=== PATIENT | female | born 1980 | race Caucasian/White ===

== ENCOUNTER 2021-08-27 09:32 | Outpatient (CLI) | payer OTHER, SELFPAY ==
--- NOTE | 2021-08-27 11:15 | NEURO_ITS ---
Impression: # Complains of nocturnal paresthesia/numbness of hands. # Severe right Carpal Tunnel Syndrome. # Moderate left Carpal Tunnel Syndrome. # Bilateral ulnar neuropathy across the elbows. # Needle/EMG exam not requested. Nerve Conduction Studies Anti Sensory Summary Table Stim Site NR Peak (ms) P-T Amp (?V) Site1 Site2 Delta-P (ms) Dist (cm) Rene (m/s) Left Median Anti Sensory (2-3nd Digit) Wrist 5.0 27.0 Wrist 2-3nd Digit 5.0 14.0 28 Wrist 4.7 14.7 Wrist 2-3nd Digit 5.0 14.0 28 Right Median Anti Sensory (2-3nd Digit) Wrist 8.9 12.7 Wrist 2-3nd Digit 8.9 14.0 16 Wrist 8.4 26.8 Wrist 2-3nd Digit 8.9 14.0 16 Left Radial Anti Sensory (Base 1st Digit) Wrist 1.7 51.9 Wrist Base 1st Digit 1.7 0.0 Right Radial Anti Sensory (Base 1st Digit) Wrist 2.0 21.5 Wrist Base 1st Digit 2.0 0.0 Left Ulnar Anti Sensory (5th Digit) Wrist 2.2 55.8 Wrist 5th Digit 2.2 14.0 64 Right Ulnar Anti Sensory (5th Digit) Wrist 2.3 71.1 Wrist 5th Digit 2.3 14.0 61 Motor Summary Table Stim Site NR Onset (ms) O-P Amp (mV) Site1 Site2 Delta-0 (ms) Dist (cm) Rene (m/s) Left Median Motor (Abd Poll Brev) Wrist 4.8 2.9 Elbow Wrist 5.6 29.0 52 Elbow 10.4 3.5 Right Median Motor (Abd Poll Brev) Wrist 9.1 0.8 Elbow Wrist 5.0 28.0 56 Elbow 14.1 0.8 Left Ulnar Motor (Abd Dig Minimi) Wrist 2.4 6.3 A Elbow Wrist 6.7 31.0 46 A Elbow 9.1 5.1 B Elbow Wrist 3.6 20.0 56 B Elbow 6.0 4.9 Right Ulnar Motor (Abd Dig Minimi) Wrist 2.2 6.7 A Elbow Wrist 6.1 30.0 49 A Elbow 8.3 6.2 B Elbow Wrist 3.7 19.0 51 B Elbow 5.9 4.5 F Wave Studies NR F-Lat (ms) L-R F-Lat (ms) Left Median (Mrkrs) (Abd Poll Brev) 28.95 0.70 Right Median (Mrkrs) (Abd Poll Brev) 28.25 0.70 Left Ulnar (Mrkrs) (Abd Dig Min) 29.65 0.41 Right Ulnar (Mrkrs) (Abd Dig Min) 29.24 0.41 MTDD
== END 2021-08-27 09:33 | disposition home or self-care (01) ==
LOC: ANHNEURO 09:35
PROVIDERS: PCP Physician Assistant; Visit Provider Physician Assistant
DX: G56.03 Carpal tunnel syndrome, bilateral upper limbs (principal); G56.23 Lesion of ulnar nerve, bilateral upper limbs; R20.0 Anesthesia of skin
CPT/HCPCS: 95911

== ENCOUNTER 2023-02-08 18:20 | Emergency (ER) | payer OTHER, SELFPAY ==
--- NOTE | ~2023-02-08 | CT_ITS ---
EXAMINATION: CT lumbar spine wo con DATE: 02/08/2023 19:24 INDICATION: back pain, radicular pain . TECHNIQUE: Computed tomography (CT) of the lumbar spine was performed without intravenous contrast. A utomated exposure control and iterative reconstruction technique were employed. The dose-length produ ct was 1461.30 mGy-cm. COMPARISON: None. FINDINGS: 5 nonrib-bearing lumbar-type vertebral bodies. Pedicles intact. Normal vertebral body align ment. Vertebral body heights preserved. Multilevel disc space narrowing and marginal osteophytosis, s evere at L3-4 where there is prominent posterior marginal osteophytosis/disc calcification. Moderate- severe central canal stenosis at L3-4 moderate left neural foraminal narrowing at L3-4 and L4-5. Mult ilevel moderate facet arthropathy. Multiple pelvic organs calcifications, likely within the uterus an d likely related to fibroids. IMPRESSION: No acute fracture or traumatic malalignment in the lumbar spine. Moderate-severe central canal stenosis at L3-4, secondary to degenerative disc, facet, and ligamentum flavum changes. Moderate left L3-4 and L4-5 neural foraminal narrowing. Uterine fibroids. Reviewed, dictated and finalized at location K.
--- NOTE | ~2023-02-08 | XR_ITS ---
EXAM: XR hip RT 2V w AP pelvis DATE: 02/08/2023 19:21 HISTORY: pain TO RIGHT HIP NO FALL NO TRAUMA . COMPARISON: None available. FINDINGS: Normal mineralization. No fracture or dislocation. No lytic or blastic lesion. Lumbar dege nerative disc disease. Degenerative changes in the right SI joint, bilateral hips, and pubic symphysi s. Amorphous calcifications at the bilateral tendinous insertions on the greater trochanters. No eros ion or periosteal change. Soft tissues within normal limits. IMPRESSION: No acute osseous finding in the pelvis or right hip. Reviewed, dictated and finalized at location K.
--- NOTE | ~2023-02-08 | US_ITS ---
EXAMINATION: US venous doppler LE RT DATE: 02/08/2023 19:26 INDICATION: RIGHT LEG PAIN . TECHNIQUE: Grayscale images without and with compression and Doppler images of the right lower extrem ity veins were obtained. COMPARISON: None FINDINGS: The right common femoral vein, profunda (deep) femoral vein, femoral vein, popliteal vein, peroneal v ein, posterior tibial veins, gastrocnemius vein, and greater saphenous vein are patent. IMPRESSION: Patent right lower extremity veins. No evidence of deep venous thrombosis. Reviewed, dictated and finalized at location K.
[2023-02-08 18:22] VITALS: BP 173/93; PULSE 84; RESP 14; TEMP 36.5; O2SAT 100
--- NOTE | 2023-02-08 18:27 | ED.LOWEXIN ---
HPI - Extremity Injury (Lower) General Chief Complaint: Extremity Injury, Lower Stated Complaint: R leg pain Time Seen by Provider: 02/08/23 18:27 History of Present Illness HPI Narrative: Patient is a 42-year-old female with history of chronic back pain here today with right leg pain. She states that for about a week and a half to 2 weeks she has been experiencing pain that begins in her right buttock and radiates down through her calf. She notes that she has had some swelling of her right calf and seems to feel like she is always having a muscle spasm. She notes that the pain gets worse when she moves her right leg and she notes that it feels as though it may lock up while she is sleeping at night and she has to get up and move around. When the calf pain is present she has difficulty bearing weight on that leg. She denies any trauma. She denies any current lower back pain. She does feel some numbness in the leg when the pain is present. She denies any prior history of PE or DVT. No recent surgeries. Related Data Allergies Allergy/AdvReac Type Severity Reaction Status Date / Time No Known Drug Allergies Allergy Unknown Verified 06/22/18 18:44 Review of Systems Review of Systems: All systems reviewed & are unremarkable except as noted in HPI and below [facility] Family History Family History (Updated 12/15/13 @ 07:13 by DOCTOR UNKNOWN) Mother Family history of coronary artery disease Other Diabetes mellitus Social History Social History Smoking status: Never smoker Alcohol intake: current Exam Narrative: GENERAL: Well-appearing, well-nourished, and in no acute distress. HEAD: Normocephalic, atraumatic. EYES: PERRLA and EOMI. ENT: Nares clear. Mucous membranes moist. NECK: Supple. CHEST: Clear to auscultation. No respiratory distress. HEART: Regular rate and rhythm. Normal peripheral pulses. ABDOMEN: Soft, nontender, nondistended. EXTREMITIES: Normal range of motion. Calf swelling on the R with firmness within the muscle consistent with muscle spasm, she additionally appears to have muscle spasm of the right thigh. No lumbar tenderness. Strong DP pulse with good capillary refill and color to the foot. No bony tenderness in the hip, knee or ankle. SKIN: Warm, dry, no rash. NEURO: No focal deficits. Alert and oriented x3. PSYCH: Normal mood and affect. Course Course Emergency Course: Chart review performed, patient here with right leg pain. Triage vitals show hypertension, otherwise within normal limits. No prior ED visits in our system. Broad differentials including muscle spasm, DVT, lumbar radiculopathy, less likely fracture. Exam shows good blood flow to leg and foot, do not suspect arterial clot. Will give muscle relaxer. XR negative for fracture. No DVT seen US. CT lumbar spine shows no fracture. Lumbar degenerative disc disease at L3-L5. Will reevaluate after muscle relaxer. Reevaluated. The results of pertinent diagnostic studies and exam findings were discussed. The patient?s provisional diagnosis and plan of care were discussed with the patient and present family. Will DC with flexeril prescription. Advised to call PCP in the morning to coordinate follow up. The patient and/or present family expressed understanding of the diagnosis and plan. The nurse was instructed to provide written instructions and appropriate follow-up information. The patient understands their need and responsibility to obtain additional follow-up as instructed. The risks of medications administered and prescribed were discussed with the patient and family present. Vital Signs Vital signs: Vital Signs Temperature 97.7 F 02/08/23 18:22 Pulse Rate 84 02/08/23 18:22 Respiratory Rate 14 02/08/23 18:22 Blood Pressure 173/93 H 02/08/23 18:22 Pulse Oximetry 100 02/08/23 18:22 Temperature 97.7 F 02/08/23 18:22 Pulse Rate 84 02/08/23 18:22 Respiratory Rate 14 02/08/23 18:22 Bloo
[2023-02-08] MEDS: diazePAM (*CRX) 5 MG TABLET 10 MG PO (19:58)
[2023-02-08 20:44] VITALS: BP 150/93; PULSE 89; RESP 18; O2SAT 96
== END 2023-02-08 20:46 | disposition home or self-care (01) ==
PROVIDERS: Emergency Provider Student in an Organized Health Care Education/Training Program; PCP Physician Assistant
DX: M79.661 Pain in right lower leg (principal); M54.16 Radiculopathy, lumbar region; G89.29 Other chronic pain
CPT/HCPCS: 72131; 73502; 81025; 93971; 99284; A9270